=== PATIENT | female | born 1935 | race Caucasian/White ===

== ENCOUNTER 2018-06-09 12:46 | Inpatient (IN) ==
[2018-06-09] MEDS ORDERED: Morphine Inj 4 MG/ML Vial IV.PUSH ONE (13:20)
[2018-06-09 13:26] LABS: Bilirubin,Urine Negative (Negative); Clarity,Urine Clear (Clear); Color,Urine Yellow (Yellw/Straw); Glucose,Urine (UA) Negative (Negative); Leukocyte Esterase,Urine Small (Negative); Nitrite,Urine Negative (Negative); PH,Urine 6.5 (5.0-8.5); Specific Gravity,Urine Less/Equal 1.005 (1.002-1.035); Urobilinogen,Urine 0.2 mg/dL (Less than 2)
[2018-06-09 13:31] LABS: Squamous Epithelial Cell,Urine 0-5 /hpf (0-5)
--- NOTE | 2018-06-09 14:04 | ED ---
HPI General Chief Complaint: Abdominal Pain Stated Complaint: Abd pain x Friday Time Seen by Provider: 06/09/18 13:23 Source: patient Mode of arrival: ambulatory Limitations: no limitations History of Present Illness HPI narrative: 83-year-old female with history of AFIB, hyperlipidemia, GERD, anticoagulated on Xarelto here with diffuse abdominal pain times 3 days. Denies nausea, vomiting, constipation, diarrhea. She reports she had a small normal bowel movement yesterday. Denies urinary symptoms. Denies chest pain or shortness of breath. She reports the pain is diffuse, intermittent, sharp and spasming at times. No provoking factors. No alleviating factors. No fever or chills. No prior abdominal surgeries. PCP Dr. Grace Last PO intake 8 ounces of water at 9am Related Data Home Medications Medication Instructions Recorded Confirmed atorvastatin [Lipitor] 10 mg PO DAILY 06/09/18 06/09/18 calcium carbonate [Calcium 500] 750 mg PO DAILY 06/09/18 06/09/18 cyanocobalamin (vitamin B-12) 1,000 mcg PO DAILY 06/09/18 06/09/18 [Vitamin B-12] diltiazem HCl 300 mg PO DAILY 06/09/18 06/09/18 fluticasone-vilanterol [Breo 1 inh INHALATION DAILY 06/09/18 06/09/18 Ellipta] omeprazole 40 mg PO DAILY 06/09/18 06/09/18 rivaroxaban [Xarelto] 20 mg PO DAILY 06/09/18 06/09/18 Allergies Allergy/AdvReac Type Severity Reaction Status Date / Time No Known Allergies Allergy Verified 06/09/18 12:48 Review of Systems ROS: all other systems reviewed are negative PMFSH Medical History Medical History Atrial fibrillation (Acute) GERD (gastroesophageal reflux disease) (Acute) History of hysterectomy (Acute) Social History Social History Substance History: No History of Abuse Second Hand Smoke Exposure: No Smoking Status: Former smoker Tobacco Type: Cigarettes How Often Do You Have a Drink Containing Alcohol: 2 to 4 times a month Recent Travel in [facility] within the Last 8 Weeks: No Recent Out of Country Travel within the Last 8 Weeks: No Immunization History Tetanus Immunization: Unsure Exam Narrative Exam Narrative: GENERAL: Well-nourished, well-developed patient. Patient appears uncomfortable at times grimacing holding her abdomen SKIN: Focused skin assessment warm/dry. HEAD: Normocephalic. EYES: No scleral icterus. No injection or drainage. NECK: Supple, trachea midline. No JVD or lymphadenopathy. CARDIOVASCULAR: Regular rate and rhythm without murmurs, gallops, or rubs. RESPIRATORY: Breath sounds equal bilaterally. No accessory muscle use. GASTROINTESTINAL: Abdomen soft, nondistended. Diffusely tender in all quadrants with increased sensitivity in the left upper and right lower quadrant. Mild guarding. MUSCULOSKELETAL: No cyanosis, or edema. BACK: Nontender without obvious deformity. No CVA tenderness. Course Initial Documented Vital Signs Temperature 97.8 F 06/09/18 12:50 Pulse Rate 92 H 06/09/18 12:50 Respiratory Rate 18 06/09/18 12:50 Blood Pressure 155/64 H 06/09/18 12:50 Pulse Oximetry 97 06/09/18 12:50 Last Documented Vital Signs Temperature 99.5 F 06/09/18 15:36 Pulse Rate 110 H 06/09/18 15:36 Respiratory Rate 18 06/09/18 15:36 Blood Pressure 151/70 H 06/09/18 15:36 Pulse Oximetry 97 06/09/18 12:50 Medical Decision Making FRANKY Attestation FRANKY supervised visit: Yes Attestation: Patient presented with abdominal pain and has been found to have appendicitis. [facility] Narrative Medical decision making narrative: 83-year-old female with diffuse abdominal pain times 2 days. IV access established, patient placed on continuous cardiac and pulse oximetry monitoring. EKG obtained. CBC, CMP, coags, UA, CT abdomen pelvis ordered and pending. Patient was administered 4 mg IV morphine and [address] ABD/PELVIS: ACUTE APPENDICITIS with possible rupture Spoke with general surgeon Dr. Jackson who would like the patient kept NPO, admitted to medicine, transferred to the main hospital, plan to go to the OR this evening. He would like Zosyn IV spoke with Dr Robles ([facility]) who agrees to accept patient to their service Medical Screen Exam Complete: Yes Emergency Medical Condition: Yes Differential Diagnosis Differential Diagnosis: Appendicitis, diverticulitis, mesenteric ischemia Lab Data Result diagrams: 06/09/18 13:45 06/09/18 13:45 Lab Results 06/09/18 06/09/1818 Range/Units 13:15 13:45 13:45 WBC 9.0 (4.0-11.0) th/mm3 RBC 3.70 L (4.00-5.30) mil/mm3 Hgb 11.0 L (11.6-15.3) gm/dL Hct 34.0 L (35.0-46.0) % MCV 91.8 (80.0-100.0) fL MCH 29.7 (27.0-34.0) pg MCHC 32.3 (32.0-36.0) % RDW 12.6 (11.6-17.2) % Plt Count 213 (150-450) th/mm3 MPV 7.5 (7.0-11.0) fL Prelim Diff (Auto) Slide review pending WBC Differential Manual diff final Seg Neuts % (Manual) 53 (16-70) % Band Neuts % (Manual) 4 (0-6) % Lymphocytes % (Manual) 19 (9-44) % Monocytes % (Manual) 19 H (0-8) % Eosinophils % (Manual) 1 (0-4) % Metamyelocytes % (Man) 3 H (0-1) % Myelocytes % (Man) 1 H (0-0) % Abs Neuts (Manual) 5.5 (1.8-7.7) th/mm3 Nucleated RBCs/100 WBC 1 H (0-0) /100 WBC Differential Comment . Platelet Estimate Low L (Normal) Platelet Morphology Normal (Normal) Tear Drop Cells 1+ H (None) Ovalocytes 1+ H (None) PT 10.1 (9.8-11.6) sec INR 1.0 Ratio Sodium (136-145) meq/L Potassium (3.5-5.1) meq/L Chloride (98-107) meq/L Carbon Dioxide (21.0-32.0) meq/L Anion Gap (5-15) meq/L BUN (7-18) mg/dL Creatinine (0.50-1.00) mg/dL Estimated GFR (>89) mL/min Random Glucose (74-106) mg/dL Lactic Acid (0.4-2.0) mmol/L Calcium (8.5-10.1) mg/dL Magnesium (1.5-2.5) mg/dL Total Bilirubin (0.2-1.0) mg/dL AST (15-37) U/L ALT (10-53) U/L Alkaline Phosphatase (45-117) U/L Troponin I (0.02-0.05) ng/mL Total Protein (6.4-8.2) g/dL Albumin (3.4-5.0) g/dL Lipase (73-393) U/L Ur Collection Type Clean catch Urine Color Yellow (Yellw/Straw) Urine Clarity Clear (Clear) Urine pH 6.5 (5.0-8.5) Ur Specific [place] Less/equal 1.005 (1.002-1.035) Urine Protein Negative (Neg-Trace) mg/dL Urine Glucose (UA) Negative (Negative) mg/dL Urine Ketones Negative (Negative) mg/dL Urine Occult Blood Small H (Negative) Urine Nitrate Negative (Negative) Urine Bilirubin Negative (Negative) Urine Urobilinogen 0.2 (Less than 2) mg/dL Ur Leukocyte Esterase Small H (Negative) Urine RBC 15-50 H (0-3) /hpf Urine WBC 6-8 H (0-5) /hpf Urine WBC Clumps Occasional H (None) Ur Squamous Epith Cells 0-5 (0-5) /hpf Micro UA Comment Culture indicated Ur Microscopic Review Microscopic reviewed Urine Culture Comments Culture indicated 06/09/18 06/09/18 Range/Units 13:45 14:22 WBC (4.0-11.0) th/mm3 RBC (4.00-5.30) mil/mm3 Hgb (11.6-15.3) gm/dL Hct (35.0-46.0) % MCV (80.0-100.0) fL MCH (27.0-34.0) pg MCHC (32.0-36.0) % RDW (11.6-17.2) % Plt Count (150-450) th/mm3 MPV (7.0-11.0) fL Prelim Diff (Auto) WBC Differential Seg Neuts % (Manual) (16-70) % Band Neuts % (Manual) (0-6) % Lymphocytes % (Manual) (9-44) % Monocytes % (Manual) (0-8) % Eosinophils % (Manual) (0-4) % Metamyelocytes % (Man) (0-1) % Myelocytes % (Man) (0-0) % Abs Neuts (Manual) (1.8-7.7) th/mm3 Nucleated RBCs/100 WBC (0-0) /100 WBC Differential Comment Platelet Estimate (Normal) Platelet Morphology (Normal) Tear Drop Cells (None) Ovalocytes (None) PT (9.8-11.6) sec INR Ratio Sodium 134 L (136-145) meq/L Potassium 4.4 (3.5-5.1) meq/L Chloride 102 (98-107) meq/L Carbon Dioxide 23.3 (21.0-32.0) meq/L Anion Gap 9 (5-15) meq/L BUN 7 (7-18) mg/dL Creatinine 0.65 (0.50-1.00) mg/dL Estimated GFR 87 L (>89) mL/min Random Glucose 86 (74-106) mg/dL Lactic Acid 0.5 (0.4-2.0) mmol/L Calcium 8.5 (8.5-10.1) mg/dL Magnesium 2.2 (1.5-2.5) mg/dL Total Bilirubin 0.5 (0.2-1.0) mg/dL AST 19 (15-37) U/L ALT 16 (10-53) U/L Alkaline Phosphatase 66 (45-117) U/L Troponin I Less than 0.02 L (0.02-0.05) ng/mL Total Protein 6.9 (6.4-8.2) g/dL Albumin 3.3 L (3.4-5.0) g/dL Lipase 74 (73-393) U/L Ur Collection Type Urine Color (Yellw/Straw) Urine Clarity (Clear) Urine pH (5.0-8.5) Ur Specific [place] (1.002-1.035) Urine Protein (Neg-Trace) mg/dL Urine Glucose (UA) (Negative) mg/dL Urine Ketones (Negative) mg/dL Urine Occult Blood (Negative) Urine Nitrate (Negative) Urine Bilirubin (Negative) Urine Urobilinogen (Less than 2) mg/dL Ur Leukocyte Esterase (Negative) Urine RBC (0-3) /hpf Urine WBC (0-5) /hpf Urine WBC Clumps (None) Ur Squamous Epith Cells (0-5) /hpf Micro UA Comment Ur Microscopic Review Urine Culture Comments Imaging Data Radiologist's impression: Abdomen/Pelvis CT 06/09/18 13:20 CONCLUSION: 1. Abnormal tubular structure and small calcification in the right lower quadrant with surrounding inflammatory change. The findings are most characteristic of acute appendicitis with possible rupture. There is no free air. 2. Extensive diverticulosis. 3. Unremarkable gallbladder. Discharge Plan Discharge Disposition Patient Disposition: ED Admit(ED Internal Use Only) Discharge Order Discharge Orders: ED Use Only Admit Order (Routine); Ordered 06/09/18 Ordered By: Yesenia Hsieh Discharge Details Diagnosis: Acute appendicitis Physicians Team ED Provider: Donny Hall ED Midlevel Provider: Yesenia Hsieh Primary Care Provider: Negrito Grace Rxs /Orders / Referrals /Forms Prescriptions: No Action atorvastatin [Lipitor] 10 mg Tablet 10 mg PO DAILY RF: 0 omeprazole 40 mg Capsule,Delayed Release(Dr/Ec) 40 mg PO DAILY RF: 0 rivaroxaban [Xarelto] 20 mg Tablet 20 mg PO DAILY RF: 0 cyanocobalamin (vitamin B-12) [Vitamin B-12] 1,000 mcg Tablet 1,000 mcg PO DAILY RF: 0 calcium carbonate [Calcium 500] 500 mg calcium (1,250 mg) Tablet 750 mg PO DAILY RF: 0 diltiazem HCl 300 mg Tablet Extended Release 24 Hr 300 mg PO DAILY RF: 0 fluticasone-vilanterol [Breo Ellipta] 100-25 mcg/dose Blister With Device 1 inh INHALATION DAILY RF: 0 Status ED Status: Admitted Patient Addendum entered and electronically signed by RAFAEL Pineda 06/09/18 15:38 : Correction I spoke with general surgeon Dr. Ike Coulter
[2018-06-09 14:16] LABS: Chloride 102 meq/L (98-107); Potassium 4.4 meq/L (3.5-5.1); Sodium 134 meq/L (136-145)
[2018-06-09 14:19] LABS: Calcium 8.5 mg/dL (8.5-10.1)
[2018-06-09 14:20] LABS: Albumin 3.3 g/dL (3.4-5.0); Anion Gap 9 meq/L (5-15); Blood Urea Nitrogen 7 mg/dL (7-18); Carbon Dioxide 23.3 meq/L (21.0-32.0); Glucose,Random 86 mg/dL (74-106); Lipase 74 U/L (73-393); Magnesium 2.2 mg/dL (1.5-2.5)
[2018-06-09 14:23] LABS: Alanine Aminotransferase 16 U/L (10-53); Aspartate Aminotransferase 19 U/L (15-37); Glomerular Filtration Rate 87 mL/min (>89)
[2018-06-09 14:24] LABS: Prothrombin Time 10.1 sec (9.8-11.6); Total Protein 6.9 g/dL (6.4-8.2)
[2018-06-09 14:25] LABS: Alkaline Phosphatase 66 U/L (45-117)
[2018-06-09 14:32] LABS: Eosinophils 1 % (0-4); Lymphocytes 19 % (9-44); Metamyelocytes 3 % (0-1); Monocytes 19 % (0-8); Myelocytes 1 % (0-0); Tallied Nucleated RBC 1 (0-0)
[2018-06-09 14:33] LABS: Ovalocytes 1+; Platelet Morphology Normal (Normal); Tear Drop Cells 1+
[2018-06-09 14:42] LABS: Mean Corpuscular HGB Conc 32.3 % (32.0-36.0); Mean Corpuscular Hemoglobin 29.7 pg (27.0-34.0); Mean Corpuscular Volume 91.8 fL (80.0-100.0)
[2018-06-09 14:43] LABS: Mean Platelet Volume 7.5 fL (7.0-11.0); Platelet Count 213 th/mm3 (150-450); Red Cell Distribution Width 12.6 % (11.6-17.2)
--- NOTE | 2018-06-09 15:02 | CT ---
EXAM DATE: 06/09/2018 2:52 PM EST AGE/SEX: 83 years / Female INDICATIONS: Lower abdominal pain. CLINICAL DATA: This is the patient's initial encounter. Patient reports that signs and symptoms have been present for 3 days and indicates a pain score of 8/10. MEDICAL/SURGICAL HISTORY: Gastroesophageal reflux disease. Atrial fibrillation. Hysterectomy. ORAL CONTRAST: No oral contrast ingested. RADIATION DOSE: 9.91 CTDI (mGy) COMPARISON: No prior exams available for comparison. TECHNIQUE: Multiple contiguous axial images were obtained through the abdomen and pelvis following b olus infusion of 85 ml Omnipaque 350 (iohexol) nonionic water-soluble contrast as a single exam dos e. No oral contrast ingested. Using automated exposure control and adjustment of the mA and/or kV ac cording to patient size, radiation dose was kept as low as reasonably achievable to obtain optimal di agnostic quality images. DICOM format image data is available electronically for review and comparis on. FINDINGS: Lower Lungs: The visualized lower lungs are clear. Liver: The liver has a homogeneous density without space-occupying lesion. There is no dilation of th e biliary tree. The gallbladder is unremarkable in appearance. Spleen: Homogeneous density without enlargement. Pancreas: Unremarkable without mass or calcification. Kidneys: Normal in size and shape. No evidence of mass or hydronephrosis. Adrenal Glands: Unremarkable. Aorta: The aorta and proximal iliac vessels are grossly unremarkable without aneurysmal dilation. Bowel/Mesentery: A moderate to large size retrocardiac hiatal hernia is present. Stents of diverticu losis is noted throughout the colon with no focal wall thickening or inflammatory change. There is an abnormal tubular structure extending off the cecum measuring up to 1 cm with surrounding inflammator y change. There is an adjacent 5 mm calcification in the mesentery with surrounding inflammatory canales ge. There is no free air. Abdominal Wall: Intact. Retroperitoneum: No evidence of adenopathy in the retrocrural, para-aortic, or deep pelvic regions. Bladder: Contours are smooth. Reproductive Organs: No abnormal masses or calcifications seen. Inguinal: The inguinal region is unremarkable without evidence of adenopathy. Bony Structures: Osteopenia, degenerative change and scoliosis are present. CONCLUSION: 1. Abnormal tubular structure and small calcification in the right lower quadrant with surrounding i nflammatory change. The findings are most characteristic of acute appendicitis with possible rupture. There is no free air. 2. Extensive diverticulosis. 3. Unremarkable gallbladder. Electronically signed by: Lawrence Adams MD 06/09/2018 3:01 PM EST
[2018-06-09] MEDS ORDERED: Piperacil/Tazo 4.5 GM Premix 4.5 GM/100 ML BAG IV.SIG ONE (15:21)
[2018-06-09] MEDS ORDERED: Acetaminophen 325 MG Tablet PO PRN (16:00)
--- NOTE | 2018-06-09 16:01 | XR ---
EXAM DATE: 06/09/2018 3:55 PM EST AGE/SEX: 83 years / Female INDICATIONS: Abdominal pain. Evaluate for pneumonia, pneumothorax or other communicable diseases. Pr e-op surgery for appendectomy. CLINICAL DATA: This is the patient's initial encounter. Patient reports that signs and symptoms have been present for 2 days and indicates a pain score of 9/10. MEDICAL/SURGICAL HISTORY: Chronic obstructive pulmonary disease. AFIB. None. COMPARISON: [facility]PO, CHEST SINGLE AP, 11/27/2015. . FINDINGS: A single AP view of the chest demonstrates the lungs to be symmetrically aerated without evidence of mass, infiltrate or effusion. A retrocardiac hiatal hernia is again noted. There are tracheal calcifi cations and atherosclerotic calcifications in the aorta. The heart size appears mildly prominent.. O sseous structures are intact. CONCLUSION: 1. Mild cardiomegaly with no evidence of pulmonary edema. 2. Cardiac hiatal hernia. Electronically signed by: Lawrence Adams MD 06/09/2018 4:00 PM EST
[2018-06-09] MEDS: Morphine Inj 4 MG/ML Vial IV.PUSH PRN ×2 (16:41→21:38)
[2018-06-09] MEDS: Sod Chloride 0.9% Inj 1,000 ML IV.CONT SCH (16:42)
--- NOTE | 2018-06-09 18:33 | P.HPIM ---
History of Present Illness Primary Care Physician: Negrito Grace MD Chief Complaint: Abdominal pain History of Present Illness: This is a 83-year-old female with a history of A. fib on Xarelto, hyperlipidemia and GERD. She presents to the emergency department because of abdominal pain for 3 days. She describes an intermittent excruciating generalized pain worse on the right side associated with anorexia. Because she was not feeling well she stopped taking her Xarelto since Friday. Denies fever, chills, nausea, UTI symptoms, constipation and diarrhea. Abdominal CT shows changes suggestive of acute appendicitis with probably ruptured. General surgery has requested medical service to admit the patient and start IV Zosyn. All other systems reviewed negative. ITS Impressions Inpatient Certification Inpatient Certification: I certify that the inpatient services were ordered in accordance with Medicare regulations governing the order. This includes certification that hospital inpatient services are reasonable and necessary and in the case of services not specified as inpatient-only under 42 CFR 419.22(n), that they are appropriately provided as inpatient services in accordance to with the 2-midnight benchmark under 43 CFR 412.3(e) Estimated Total Length of Stay (Days): 2 Plans for Post Hospital Care: Home Review of Systems Review of Systems: all other systems reviewed are negative [facility] Medical History Medical History GERD (gastroesophageal reflux disease) (Acute) Atrial fibrillation (Acute) History of hysterectomy (Acute) Family History Family History Other No pertinent family history Social History Social History Substance History: No History of Abuse Second Hand Smoke Exposure: No Smoking Status: Former smoker Tobacco Type: Cigarettes How Often Do You Have a Drink Containing Alcohol: 2 to 4 times a month Recent Travel in [facility] within the Last 8 Weeks: No Recent Out of Country Travel within the Last 8 Weeks: No Immunization History Tetanus Immunization: Unsure Medications and Allergies Allergies Allergy/AdvReac Type Severity Reaction Status Date / Time No Known Allergies Allergy Verified 06/09/18 12:48 Home Medications Medication Instructions Recorded Confirmed Type atorvastatin [Lipitor] 10 mg PO DAILY 06/09/18 06/09/18 History calcium carbonate [Calcium 500] 750 mg PO DAILY 06/09/18 06/09/18 History cyanocobalamin (vitamin B-12) 1,000 mcg PO DAILY 06/09/18 06/09/18 History [Vitamin B-12] diltiazem HCl 300 mg PO DAILY 06/09/18 06/09/18 History fluticasone-vilanterol [Breo 1 inh INHALATION DAILY 06/09/18 06/09/18 History Ellipta] omeprazole 40 mg PO DAILY 06/09/18 06/09/18 History rivaroxaban [Xarelto] 20 mg PO DAILY 06/09/18 06/09/18 History Active Medications: Active Medications Acetaminophen (Tylenol) 650 mg PO Q4H PRN PRN Reason: Temp > 100.4, pain 1-2 Fluticasone/Vilanterol (Breo Ellipta 100/25 Mcg Inh) 1 puff INH DAILY NIEVES Piperacillin/Tazobactam/Dextrose (Zosyn 4.5 Gm Premix) 4.5 gm in 100 mls @ 200 mls/hr IV.SIG Q6H NIEVES Sodium Chloride (Ns Inj) 1,000 mls @ 100 mls/hr IV.CONT .Q10H NIEVES Last Infusion: 06/09/18 17:59 Dose: 100 mls/hr Morphine Sulfate (Morphine Inj) 4 mg IV.PUSH Q4H PRN PRN Reason: pain 6-10 Last Admin: 06/09/18 16:41 Dose: 4 mg Ondansetron HCl (Zofran Inj) 4 mg IV.PUSH Q6H PRN PRN Reason: NAUSEA OR VOMITING Sodium Chloride (Ns Flush) 2 ml IV.FLUSH PRN PRN PRN Reason: FLUSH AFTER USING IV ACCESS Sodium Chloride (Ns Flush) 2 ml IV.FLUSH BID NIEVES Sodium Chloride (Ns Flush) 2 ml IV.FLUSH PRN PRN PRN Reason: FLUSH AFTER USING IV ACCESS Physical Exam Vital signs: Last Vital Signs Temp 98.3 F 06/09/18 17:49 Pulse 115 H 06/09/18 17:49 Resp 24 06/09/18 17:49 BP 132/90 06/09/18 17:49 Pulse Ox 93 L 06/09/18 17:49 Intake & Output 06/07/18 06/08/18 06/09/18 06/10/18 06:59 06:59 06:59 06:59 Intake Total 100 / 100 Balance 100 / 100 Weight 60.8 kg Narrative: GENERAL: Well-developed, well-nourished in no distress SKIN: Warm and dry. HEAD: Atraumatic. Normocephalic. EYES: Pupils equal and round. No scleral icterus. No injection or drainage. ENT: No nasal bleeding or discharge. Mucous membranes pink and moist. NECK: Trachea midline. No JVD. CARDIOVASCULAR: Regular rate and rhythm. RESPIRATORY: No accessory muscle use. Clear to auscultation. Breath sounds equal bilaterally. GASTROINTESTINAL: Abdomen soft with generalized tenderness worse on the right lower quadrant MUSCULOSKELETAL: Extremities without clubbing, cyanosis, or edema. No obvious deformities. NEUROLOGICAL: Awake and alert. No obvious cranial nerve deficits. Motor grossly within normal limits. Five out of 5 muscle strength in the arms and legs. Normal speech. PSYCHIATRIC: Appropriate mood and affect; insight and judgment normal. Results Labs CBC & Chem 7: 06/09/18 13:45 06/09/18 13:45 Imaging Impressions Abdomen/Pelvis CT 06/09/18 13:20 CONCLUSION: 1. Abnormal tubular structure and small calcification in the right lower quadrant with surrounding inflammatory change. The findings are most characteristic of acute appendicitis with possible rupture. There is no free air. 2. Extensive diverticulosis. 3. Unremarkable gallbladder. Chest X-Ray 06/09/18 15:25 CONCLUSION: 1. Mild cardiomegaly with no evidence of pulmonary edema. 2. Cardiac hiatal hernia. Caprini VTE Risk Assessment Caprini VTE Risk Assessment: Moderate/High Risk (score >= 2) Caprini Risk Assessment Model: Point Value = 1 Point Value = 2 Point Value = 3 Point Value = 5 Age 41-60 Minor surgery BMI > 25 kg/m2 Swollen legs Varicose veins or History of unexplained or recurrent spontaneous Oral contraceptives or hormone replacement Sepsis (< 1 month) Serious lung disease, including pneumonia (< 1 month) Abnormal pulmonary function Acute myocardial infarction Congestive heart failure (< 1 month) History of inflammatory bowel disease Medical patient at bed rest Age 61-74 Arthroscopic surgery Major open surgery (> 45 min) Laparoscopic surgery (> 45 min) Malignancy Confined to bed (> 72 hours) Immobilizing plaster cast Central venous access Age >= 75 History of VTE Family history of VTE Factor V Leiden Prothrombin [id number] Lupus anticoagulant Anticardiolipin antibodies Elevated serum homocysteine Heparin-induced thrombocytopenia Other congenital or acquired thrombophilia Stroke (< 1 month) Elective arthroplasty Hip, pelvis, or leg fracture Acute spinal cord injury (< 1 month) Prophylaxis Regimen: Total Risk Factor Score Risk Level Prophylaxis Regimen 0-1 Low Early ambulation 2 Moderate Order ONE of the following: *Sequential Compression Device (SCD) *Heparin 5000 units SQ BID 3-4 Higher Order ONE of the following medications: *Heparin 5000 units SQ TID *Enoxaparin/Lovenox 40 mg SQ daily (WT < 150 kg, CrCl > 30 mL/min) *Enoxaparin/Lovenox 30 mg SQ daily (WT < 150 kg, CrCl > 10-29 mL/min) *Enoxaparin/Lovenox 30 mg SQ BID (WT < 150 kg, CrCl > 30 mL/min) AND/OR *Sequential Compression Device (SCD) 5 or more Highest Order ONE of the following medications: *Heparin 5000 units SQ TID (Preferred with Epidurals) *Enoxaparin/Lovenox 40 mg SQ daily (WT < 150 kg, CrCl > 30 mL/min) *Enoxaparin/Lovenox 30 mg SQ daily (WT < 150 kg, CrCl > 10-29 mL/min) *Enoxaparin/Lovenox 30 mg SQ BID (WT < 150 kg, CrCl > 30 mL/min) AND *Sequential Compression Device (SCD) Assessment and Plan Plan 83-year-old female presenting with abdominal pain anorexia. Abdominal CT shows changes suggestive of acute appendicitis probably ruptured. Acute appendicitis. Keep patient n.p.o., start IV fluids and pain management with IV morphine. Counseled regarding narcotics. Continue IV Zosyn. Consult general surgery. Off Xarelto for at least 2 days DVT prophylaxis with SCD and early ambulation.
[2018-06-09] MEDS ORDERED: fentaNYL Citrate Inj 250 MCG/5 ML Ampul ONE (19:55)
[2018-06-09] MEDS ORDERED: Bupivacaine/Epinephrine PF Inj 0.5% 30 ML Vial ONE (20:57)
[2018-06-09] MEDS: Piperacil/Tazo 4.5 GM Premix 4.5 GM/100 ML BAG IV.SIG SCH (21:40)
[2018-06-10] MEDS: Morphine Inj 4 MG/ML Vial IV.PUSH PRN ×5 (02:18→21:35)
[2018-06-10] MEDS: Sod Chloride 0.9% Inj 1,000 ML IV.CONT SCH ×4 (02:23→21:39)
[2018-06-10] MEDS ORDERED: Morphine Sulfate Inj 2 MG/ML Vial IV.PUSH ONE (04:15)
[2018-06-10] MEDS: Piperacil/Tazo 4.5 GM Premix 4.5 GM/100 ML BAG IV.SIG SCH ×4 (04:34→21:34)
[2018-06-10] MEDS ORDERED: Bupivacaine/Epinephrine PF Inj 0.5% 30 ML Vial ONE (05:08)
[2018-06-10 05:14] LABS: Baso % (Auto) 0.3 % (0.0-2.0); Eos % (Auto) 0.1 % (0.0-4.0); Hematocrit 35.5 % (35.0-46.0); Hemoglobin 11.7 gm/dL (11.6-15.3); Lymph # (Auto) 0.8 th/mm3 (1.0-4.8); Lymph % (Auto) 7.4 % (9.0-44.0); Mean Corpuscular HGB Conc 33.1 % (32.0-36.0); Mean Corpuscular Hemoglobin 31.3 pg (27.0-34.0); Mean Corpuscular Volume 94.7 fL (80.0-100.0); Mean Platelet Volume 7.4 fL (7.0-11.0); Mono # (Auto) 0.7 th/mm3 (0.0-0.9); Mono % (Auto) 6.4 % (0.0-8.0); Neut # (Auto) 9.1 th/mm3 (1.8-7.7); Neut % (Auto) 85.8 % (16.0-70.0); Platelet Count 190 th/mm3 (150-450); Red Blood Count 3.75 mil/mm3 (4.00-5.30); Red Cell Distribution Width 13.6 % (11.6-17.2); White Blood Count 10.6 th/mm3 (4.0-11.0)
[2018-06-10 05:35] LABS: Alanine Aminotransferase 13 U/L (10-53); Albumin 3.2 g/dL (3.4-5.0); Anion Gap 8 meq/L (5-15); Aspartate Aminotransferase 13 U/L (15-37); Blood Urea Nitrogen 7 mg/dL (7-18); Calcium 8.3 mg/dL (8.5-10.1); Carbon Dioxide 25.2 meq/L (21.0-32.0); Chloride 105 meq/L (98-107); Glomerular Filtration Rate Greater Than 89 mL/min (>89); Glucose,Random 84 mg/dL (74-106); Potassium 3.8 meq/L (3.5-5.1); Sodium 138 meq/L (136-145)
[2018-06-10 05:38] LABS: Alkaline Phosphatase 68 U/L (45-117); Total Protein 6.8 g/dL (6.4-8.2)
--- NOTE | 2018-06-10 06:33 | P.OP ---
- Preoperative Diagnosis (1) Acute appendicitis - Postoperative Diagnosis (1) Acute appendicitis Procedure: lap appy Anesthesia: GETA Surgeon: Abdi Coulter MD Estimated blood loss (mL): 5 Pathology: other (cutlure of abdominal abscess, appendix) Operation and Findings: localized perforation
[2018-06-10] MEDS ORDERED: fentaNYL Citrate Inj 100 MCG/2 ML Ampul ONE (06:57)
--- NOTE | 2018-06-10 07:09 | MB ---
cc: Abdi Coulter MD DATE: 06/09/2018 REASON FOR CONSULTATION: Abdominal pain, acute appendicitis. 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 HISTORY OF PRESENT ILLNESS: The patient is an 83-year-old female who presents with acute onset of abdominal pain. The patient noted medical issues including atrial fibrillation on Xarelto, presented with a 3-day history of pain starting Friday. She states the pain started on the right side, continued to get worse. She has had some radiation to bilateral lower quadrants and no improvement. Pain was worse with movement, better with lying still. She had associated anorexia, but denied any vomiting, fevers or chills. She came to the emergency department for further evaluation including CT scan showing acute appendicitis with a white count of 9. Therefore, decision was made for transfer from [place] to [facility], given the patient's advanced age, medical comorbidities, and acute problem. Surgery was consulted for operative intervention. PAST MEDICAL HISTORY: Reflux, atrial fibrillation. PAST SURGICAL HISTORY: Hysterectomy. FAMILY HISTORY: Denies diabetes or hypertension. SOCIAL HISTORY: Denies current smoking or history of smoking. Denies ETOH or IVDA. ALLERGIES: NO KNOWN DRUG ALLERGIES. MEDICATIONS: See EMR, [facility]. REVIEW OF SYSTEMS: GENERAL: Denies fevers, chills. HEENT: Denies eye pain, ear pain. NECK: Denies swelling or pain. LUNGS: Denies cough or wheeze. HEART: Denies palpitations or chest pain. ABDOMEN: Complains of abdominal pain. Denies nausea or vomiting. GENITOURINARY: Denies dysuria or hematuria, urinary incontinence, polyuria or polydipsia. INTEGUMENT: Denies any mass or lesions. PHYSICAL EXAMINATION: GENERAL: The patient in no acute distress. VITAL SIGNS: Temperature 98.3, pulse 115, respirations 24, blood pressure 132/90, saturation 98%. HEENT: Pupils equal, round, reactive. NECK: Supple. Trachea midline. LUNGS: Clear to auscultation, bilateral expansion. HEART: S1, S2. ABDOMEN: Soft. Positive tenderness to palpation in bilateral lower quadrants, worse on the right and left. No rebound or guarding. EXTREMITIES: Warm and well perfused. NEUROLOGIC: GCS of 15. 5/5 motor in all extremities. LABORATORY AND DIAGNOSTIC DATA: WBC 9, hemoglobin 11, hematocrit 34, platelets 213. Sodium 134, potassium 4.4, chloride 102, BUN 7, creatinine 0.6, AST 19, ALT 16, lipase 74. CT reviewed by myself showing an inflamed appendix with acute appendicitis and diverticulosis. ASSESSMENT: The patient is an 83-year-old female who presents with acute appendicitis. PLAN: After a full workup of the patient as above. Main issue at this point, the patient appears to have acute appendicitis. We will plan for operative intervention including laparoscopic appendectomy. Discussed with the patient in detail, states understanding and agrees. We will give IV antibiotics, pain control, IV fluids. Again, the patient needs to go to the operating room. The patient is aware and agrees. I did discuss further with the patient regarding Xarelto and advanced age and discussed elevated risk as a result of this. Again, she is aware and would like to proceed with surgery. Daughter at bedside. MD LISA Burton/roman/pipe , 06:39 AM , 06:46 AM
--- NOTE | 2018-06-10 07:17 | MP ---
cc: Abdi Coulter MD DATE OF OPERATION: 06/10/2018 PREOPERATIVE DIAGNOSIS: Acute appendicitis. POSTOPERATIVE DIAGNOSIS: Acute appendicitis, localized perforation. PROCEDURE PERFORMED: Laparoscopic appendectomy. SURGEON: Abdi Coulter MD WHARF LABORER: None. ANESTHESIA: GETA. INTRAVENOUS FLUIDS: See anesthesia sheet. ESTIMATED BLOOD LOSS: 5 mL. DRAINS: A 10-[place] flat KRISHNA drain, right lower quadrant. FINDINGS: Localized perforation, acute appendicitis. SPECIMENS: Appendix, purulent material sent for culture. WOUND CLASSIFICATION: Contaminated. INDICATIONS: An 83-year-old female with acute onset of abdominal pain. Pain started 3 days ago, got worse. CT scan findings consistent with appendicitis. Therefore, decision was made for operative intervention. DETAILS OF PROCEDURE: The patient was taken to the operating suite, placed in supine position. She was prepped and draped in the usual sterile fashion after induction of general endotracheal anesthesia. Brief timeout done stating correct patient, procedure and surgical site. We were all in agreement with this. Attention was first directed to the umbilicus where local anesthetic was injected. Stab abigail incision was made. The 5 mm Optiview port was placed with 0-degree lens, entered the abdomen safely. Abdomen insufflated to 15 mm pneumoperitoneum. On gross inspection, no evidence of injury. Two other ports were placed including left lower quadrant 12 mm and a 5 mm suprapubic port. The patient was placed in Trendelenburg and airplaned on the left. The right lower quadrant was examined. The small bowel ileum was noted to be draped over the appendix and somewhat adhered to the inflammatory reaction of the appendix. This was dissected away from the appendix. The appendix was identified and noted to be again localized with contained abscess perforation. Suction and irrigation done to clean out perforation. The appendix was mobilized. The base of the mesoappendix, small window made with [place]. The Endo-RADHA stapler 35 was used to transect the base of the appendix. The mesoappendix was again thickened and indurated. A 35 RADHA stapler was used to transect this as well. Appendix was placed in the EndoCatch bag and removed from the abdomen. Hemostasis was obtained. A small amount of Surgicel powder was placed in the right lower quadrant. Everything noted to be hemostatic. The 10-[place] flat Koby drain was placed in the right lower quadrant through the suprapubic incision. A 3-0 nylon used to secure this in place. Pneumoperitoneum were removed. Ports were removed. The left lower quadrant port was closed to the fascia with 0 Vicryl and 4-0 Monocryl incisional port sites. Sterile dressings including Mastisol and Steri-Strips placed. The patient tolerated the procedure well. All lap and instrument counts were correct at the end of the procedure. The patient was extubated and taken stable to PACU. MD LISA Burton/roman/kd , 06:43 AM , 06:49 AM
[2018-06-10] MEDS ORDERED: *morphine SULFATE 4 MG/ML PERIprocedure ONLY ONE (09:21)
--- NOTE | 2018-06-10 16:53 | P.PN ---
Subjective Interval history: Follow-up for acute appendicitis. The patient is seen status post laparoscopic appendectomy earlier today. She reports continued intractable diffuse abdominal pain s/p surgery. She states the IV morphine does work but it does not last long , requesting more frequent dosing. She reports intermittent nausea but no vomiting since surgery. Last BM was on Friday 06/08. Denies any current fevers/ chills. Denies any other medical complaints at this time. Physical Exam Vital signs: Vital Signs 06/09/18 16:46 06/09/18 17:49 06/09/18 20:00 Temperature 99 F 98.3 F 99.5 F Pulse Rate 110 H 115 H 112 H Respiratory Rate 18 24 20 Blood Pressure 120/60 132/90 142/67 H Pulse Oximetry 93 L 92 L 06/10/18 00:10 06/10/18 04:20 06/10/18 05:01 Temperature 99.6 F 99.1 F Pulse Rate 118 H 112 H 104 H Respiratory Rate 16 22 18 Blood Pressure 104/57 L 155/74 H 142/61 H Pulse Oximetry 92 L 94 L 93 L 06/10/18 06:43 06/10/18 06:45 06/10/18 07:00 Temperature 98.8 F Pulse Rate 108 H 117 H 112 H Respiratory Rate 16 17 21 Blood Pressure 128/58 L 109/57 L 138/65 Pulse Oximetry 93 L 91 L 98 06/10/18 07:15 06/10/18 07:30 06/10/18 07:45 Temperature 98.5 F Pulse Rate 105 H 96 H 104 H Respiratory Rate 24 16 15 Blood Pressure 113/51 L 117/69 126/59 L Pulse Oximetry 98 96 94 L 06/10/18 08:00 06/10/18 08:15 06/10/18 08:30 Temperature 97.6 F Pulse Rate 98 H 73 81 Respiratory Rate 15 14 14 Blood Pressure 115/55 L 115/53 L 121/58 L Pulse Oximetry 95 95 96 06/10/18 09:00 06/10/18 09:28 06/10/18 09:30 Temperature Pulse Rate 79 80 Respiratory Rate 16 14 14 Blood Pressure 124/55 L 142/64 H Pulse Oximetry 97 96 06/10/18 10:00 06/10/18 10:30 06/10/18 11:02 Temperature Pulse Rate 83 87 87 Respiratory Rate 13 14 14 Blood Pressure 126/58 L 126/58 L 111/57 L Pulse Oximetry 96 98 96 06/10/18 12:00 Temperature 98.1 F Pulse Rate 101 H Respiratory Rate 16 Blood Pressure 117/55 L Pulse Oximetry 97 Intake & Output 06/09/18 06/10/18 06/10/18 18:59 06:59 18:59 Intake Total 100 / 100 2100 / 2100 1100 / 1100 Output Total Balance 100 / 100 2090 / 2090 1090 / 1090 Weight 60.8 kg 59.421 kg Intake: IV 100 / 100 1200 / 1200 1100 / 1100 NS Inj 1,000 ML @ 100 mls/hr IV 0 / 0 1000 / 1000 1000 / 1000 .CONT .Q10H NIEVES Rx#:[id number] Zosyn 4.5 GM Premix 4.5 gm In 100 / 100 200 / 200 100 / 100 100 ml @ 200 mls/hr IV.SIG Q6H NIEVES Rx#:[id number] Oral 0 / 0 Anesthesia Amount 900 / 900 Output: Estimated Blood Loss Wound Drainage # 1 Abdomen Other: # Voids 1 3 Weight On Admission 59.421 kg Narrative: GENERAL: Well-nourished, well-developed pleasant elderly female patient in [facility]. SKIN: Warm and dry. No rash. HEENT: Normocephalic. Atraumatic. Pupils equal and round. Mucous membranes pink and moist. CARDIOVASCULAR: Irregular rate and rhythm. 2/6 systolic murmur noted. RESPIRATORY: No accessory muscle use. Clear to auscultation. Breath sounds equal bilaterally. GASTROINTESTINAL: Abdomen soft, nondistended, mild diffuse TTP. Normoactive bowel sounds x4. MUSCULOSKELETAL: No obvious deformities. Extremities without clubbing, cyanosis , or edema. NEUROLOGICAL: Awake and alert. No obvious cranial nerve deficits. Moving all extremities spontaneously. Normal speech. PSYCHIATRIC: Appropriate mood and affect; insight and judgment normal. Results - Labs CBC & Chem 7: 06/10/18 04:37 06/10/18 04:37 Laboratory Results - last 24 hr 06/09/18 06/10/18 06/10/18 19:18 04:37 04:37 WBC 10.6 RBC 3.75 L Hgb 11.7 Hct 35.5 MCV 94.7 MCH 31.3 MCHC 33.1 RDW 13.6 Plt Count 190 MPV 7.4 Neut % (Auto) 85.8 H Lymph % (Auto) 7.4 L Flagler % (Auto) 6.4 Eos % (Auto) 0.1 Baso % (Auto) 0.3 Neut # (Auto) 9.1 H Lymph # (Auto) 0.8 L Flag[place] # (Auto) 0.7 Eos # (Auto) 0.0 Baso # (Auto) 0.0 WBC Differential . Differential Comment Auto diff final Sodium 138 Potassium 3.8 Chloride 105 Carbon Dioxide 25.2 Anion Gap 8 BUN 7 Creatinine 0.62 Estimated GFR Greater than 89 POC Glucose 91 Random Glucose 84 Calcium 8.3 L Total Bilirubin 0.9 AST 13 L ALT 13 Alkaline Phosphatase 68 Total Protein 6.8 Albumin 3.2 L 06/10/18 04:51 WBC RBC Hgb Hct MCV MCH MCHC RDW Plt Count MPV Neut % (Auto) Lymph % (Auto) Flag[place] % (Auto) Eos % (Auto) Baso % (Auto) Neut # (Auto) Lymph # (Auto) [place] # (Auto) Eos # (Auto) Baso # (Auto) WBC Differential Differential Comment Sodium Potassium Chloride Carbon Dioxide Anion Gap BUN Creatinine Estimated GFR POC Glucose 83 Random Glucose Calcium Total Bilirubin AST ALT Alkaline Phosphatase Total Protein Albumin Microbiology 06/09/18 13:15 Clean Catch Urine Urine Culture - Preliminary Immature growth - reincubate - Imaging Abdomen/Pelvis CT 06/09/18 13:20 CONCLUSION: 1. Abnormal tubular structure and small calcification in the right lower quadrant with surrounding inflammatory change. The findings are most characteristic of acute appendicitis with possible rupture. There is no free air. 2. Extensive diverticulosis. 3. Unremarkable gallbladder. Chest X-Ray 06/09/18 15:25 CONCLUSION: 1. Mild cardiomegaly with no evidence of pulmonary edema. 2. Cardiac hiatal hernia. - Procedures 06/10/18laparoscopic appendectomy with Dr. Coulter Assessment and Plan - Plan 83-year-old female with history of A. fib on Xarelto, HLD, GERD, presents with abdominal pain and anorexia times 3 days. Acute appendicitis: -CT abdomen/pelvis reviewed, shows acute appendicitis with possible rupture; no free air -Kept n.p.o. -Supportive treatment with IVF, antiemetics, pain control with IV morphine - increased to q2h prn -Continue on antibiotics with IV Zosyn -Consulted general surgery -S/p laparoscopic appendectomy 06/10 -Diet advanced to clear liquids per surgical team -Monitor for improvement Atrial fibrillation: Chronic -Patient has been off Xarelto for at least 2 days due to feeling ill -Continue to hold Xarelto until cleared by surgery to restart -Continue patient's Cardizem CD 300 mg daily -Monitor on telemetry GERD: Chronic -Continue PPI Hyperlipidemia: Chronic -Continue statin DVT prophylaxis: with SCD and early ambulation. Discharge Planning: The patient is status post laparoscopic appendectomy today. Plan to discharge home when tolerating oral intake and cleared by general surgery.
[2018-06-10] MEDS ORDERED: dilTIAZem 60 MG Tablet PO PRN (17:20)
--- NOTE | 2018-06-10 23:07 | ECG ---
Date Performed: 06/09/2018 Time Performed: 13:36:15 PTAGE: 83 years EKG: ATRIAL FIBRILLATION SEPTAL MYOCARDIAL INFARCTION ABNORMAL ECG NO PREVIOUS TRACING DOCTOR: Kenneth Guzmán Interpretating Date/Time 06/10/2018 23:04:46
[2018-06-11] MEDS: Morphine Inj 4 MG/ML Vial IV.PUSH PRN ×9 (03:51→21:34)
[2018-06-11] MEDS: Piperacil/Tazo 4.5 GM Premix 4.5 GM/100 ML BAG IV.SIG SCH ×4 (05:32→21:34)
[2018-06-11] MEDS: dilTIAZem CD 300 MG Capsule PO SCH (08:50)
--- NOTE | 2018-06-11 08:56 | P.PN ---
Subjective Interval history: Follow-up acute appendicitis June 11, 2018-patient seen and examined, complains of radiating abdominal pain to the right upper quadrant. Afebrile Physical Exam Vital signs: Vital Signs 06/10/18 09:00 06/10/18 09:28 06/10/18 09:30 Temperature Pulse Rate 79 80 Respiratory Rate 16 14 14 Blood Pressure 124/55 L 142/64 H Pulse Oximetry 97 96 06/10/18 10:00 06/10/18 10:30 06/10/18 11:02 Temperature Pulse Rate 83 87 87 Respiratory Rate 13 14 14 Blood Pressure 126/58 L 126/58 L 111/57 L Pulse Oximetry 96 98 96 06/10/18 12:00 06/10/18 16:00 06/10/18 20:00 Temperature 98.1 F 97.8 F 98.1 F Pulse Rate 101 H 110 H 124 H Respiratory Rate 16 16 18 Blood Pressure 117/55 L 142/73 H 165/79 H Pulse Oximetry 97 97 93 L 06/10/18 21:39 06/10/18 23:55 06/11/18 00:00 Temperature 98.2 F Pulse Rate 142 H 101 H Respiratory Rate 20 20 Blood Pressure 135/62 Pulse Oximetry 06/11/18 04:00 06/11/18 04:29 06/11/18 06:34 Temperature 97.9 F Pulse Rate 93 H Respiratory Rate 18 20 20 Blood Pressure 139/63 Pulse Oximetry 96 Intake & Output 06/10/18 06/11/18 06/11/18 18:59 06:59 18:59 Intake Total 2700 / 2700 320 / 320 Output Total 10 / 10 0 / 0 Balance 2690 / 2690 320 / 320 Weight 66.5 kg Intake: IV 2200 / 2200 200 / 200 NS Inj 1,000 ML @ 100 mls/hr IV 1999 / 1999 .CONT .Q10H NIEVES Rx#:[id number] Zosyn 4.5 GM Premix 4.5 gm In 200 / 200 200 / 200 100 ml @ 200 mls/hr IV.SIG Q6H NIEVES Rx#:[id number] Oral 500 / 500 120 / 120 Output: Wound Drainage 10 / 10 0 / 0 # 1 Abdomen 10 / 10 0 / 0 Other: # Voids 1 3 Narrative: GENERAL: NAD SKIN: Warm and dry. HEAD: Atraumatic. Normocephalic. EYES: Pupils equal and round. No scleral icterus. No injection or drainage. ENT: No nasal bleeding or discharge. Mucous membranes pink and moist. NECK: Trachea midline. No JVD. CARDIOVASCULAR: Irregular regular rate and rhythm. RESPIRATORY: No accessory muscle use. Clear to auscultation. Breath sounds equal bilaterally. GASTROINTESTINAL: Abdomen soft, non-tender, nondistended. Hepatic and splenic margins not palpable. inc c/d/i MUSCULOSKELETAL: Extremities without clubbing, cyanosis, or edema. No obvious deformities. NEUROLOGICAL: Awake and alert. No obvious cranial nerve deficits. Motor grossly within normal limits. Five out of 5 muscle strength in the arms and legs. Normal speech. PSYCHIATRIC: Appropriate mood and affect; insight and judgment normal. Results - Labs CBC & Chem 7: 06/10/18 04:37 06/10/18 04:37 Laboratory Results - last 24 hr 06/11/18 00:08 POC Glucose 152 H Microbiology 06/10/18 06:06 Wound - Abdominal Gram Stain - Final 06/09/18 13:15 Clean Catch Urine Urine Culture - Preliminary Immature growth - reincubate - Procedures 06/10/18laparoscopic appendectomy with Dr. Coulter Assessment and Plan - Plan 83-year-old female with Acute appendicitis: -Status post appendectomy Management per general surgery Pain management accordingly Currently on clear diet, advance diet as tolerated per surgery Continue on antibiotics with IV Zosyn Atrial fibrillation: Chronic -Continue to hold Xarelto until cleared by surgery to restart -Continue patient's Cardizem CD 300 mg daily -Monitor on telemetry GERD: Chronic -Continue PPI Hyperlipidemia: Chronic -Continue statin DVT prophylaxis: with SCD and early ambulation.
--- NOTE | 2018-06-11 09:32 | P.PNGS ---
Subjective Interval history: Resting in bed Reports HR was high yesterday but better today after Cardizem restarted Physical Exam Vital signs: Vital Signs 06/10/18 09:30 06/10/18 10:00 06/10/18 10:30 Temperature Pulse Rate 80 83 87 Respiratory Rate 14 13 14 Blood Pressure 142/64 H 126/58 L 126/58 L Pulse Oximetry 96 96 98 06/10/18 11:02 06/10/18 12:00 06/10/18 16:00 Temperature 98.1 F 97.8 F Pulse Rate 87 101 H 110 H Respiratory Rate 14 16 16 Blood Pressure 111/57 L 117/55 L 142/73 H Pulse Oximetry 96 97 97 06/10/18 20:00 06/10/18 21:39 06/10/18 23:55 Temperature 98.1 F Pulse Rate 124 H 142 H Respiratory Rate 18 20 Blood Pressure 165/79 H Pulse Oximetry 93 L 06/11/18 00:00 06/11/18 04:00 06/11/18 04:29 Temperature 98.2 F 97.9 F Pulse Rate 101 H 93 H Respiratory Rate 20 18 20 Blood Pressure 135/62 139/63 Pulse Oximetry 96 06/11/18 06:34 Temperature Pulse Rate Respiratory Rate 20 Blood Pressure Pulse Oximetry Intake & Output 06/10/18 06/11/18 06/11/18 18:59 06:59 18:59 Intake Total 2700 / 2700 320 / 320 Output Total 10 / 10 0 / 0 Balance 2690 / 2690 320 / 320 Weight 66.5 kg Intake: IV 2200 / 2200 200 / 200 NS Inj 1,000 ML @ 100 mls/hr IV 1999 / 1999 .CONT .Q10H NIEVES Rx#:[id number] Zosyn 4.5 GM Premix 4.5 gm In 200 / 200 200 / 200 100 ml @ 200 mls/hr IV.SIG Q6H NIEVES Rx#:[id number] Oral 500 / 500 120 / 120 Output: Wound Drainage 10 / 10 0 / 0 # 1 Abdomen 10 / 10 0 / 0 Other: # Voids 1 3 Narrative: Alert and awake Abd: mildly distended; post op pain at umbilicus and RLQ; EMELYN with thin purulent drainage Results - Labs 06/10/18 04:37 06/10/18 04:37 Laboratory Results - last 24 hr 06/11/18 00:08 POC Glucose 152 H - Imaging Imaging: ITS Impressions Abdomen/Pelvis CT 06/09/18 13:20 CONCLUSION: 1. Abnormal tubular structure and small calcification in the right lower quadrant with surrounding inflammatory change. The findings are most characteristic of acute appendicitis with possible rupture. There is no free air. 2. Extensive diverticulosis. 3. Unremarkable gallbladder. Chest X-Ray 06/09/18 15:25 CONCLUSION: 1. Mild cardiomegaly with no evidence of pulmonary edema. 2. Cardiac hiatal hernia. Assessment and Plan - Assessment (1) Acute appendicitis Code(s): K35.80 - Unspecified acute appendicitis Status: Acute Plan: 83 year old female POD1 lap appy; localized perforation -Continue clear liquids until bowel function returns -IVF -Continue Cardizem -OOB as long as HR stable -Pain control -High risk for ileus ---go slow with diet---will likely remain in the hospital for 48-72 hours - Attending Attestation patient seen at bedside keep clears today emelyn sxn ambulate abx The exam, history, and the medical decision-making described in the above note were completed with the assistance of the mid-level provider. I reviewed and agree with the findings presented. I attest that I had a [id number] encounter with the patient on the same day, and personally performed and documented my assessment and findings in the medical record. (1) Acute appendicitis Qualifiers: Acute appendicitis type: other Qualified Code(s): K35.890 - Other acute appendicitis without perforation or gangrene; K35.89 - Other acute appendicitis
[2018-06-11] MEDS: Sod Chloride 0.9% Inj 1,000 ML IV.CONT SCH (11:25)
--- NOTE | 2018-06-11 22:54 | XR ---
EXAM DATE: 06/11/2018 10:51 PM EST AGE/SEX: 83 years / Female INDICATIONS: Shortness of breath. CLINICAL DATA: This is the patient's subsequent encounter. Patient reports that signs and symptoms h ave been present for 1 day and indicates a pain score of 0/10. MEDICAL/SURGICAL HISTORY: Chronic obstructive pulmonary disease. Congestive heart failure. Non e. COMPARISON: HPO, CHEST 1V SINGLE AP, 06/09/2018. . FINDINGS: The heart is enlarged. There is moderate interstitial edema present. There are bibasilar parenchymal changes evident with probably small pleural effusion. There is no pne umothorax. CONCLUSION: Moderate congestive failure with significant progression from 06/09/2018 Electronically signed by: Caleb Ignacio MD Board Certified Radiologist 06/11/2018 10:52 PM EST
[2018-06-12] MEDS: Morphine Inj 4 MG/ML Vial IV.PUSH PRN ×4 (02:21→16:50)
[2018-06-12] MEDS: Piperacil/Tazo 4.5 GM Premix 4.5 GM/100 ML BAG IV.SIG SCH ×4 (04:52→22:18)
[2018-06-12] MEDS: dilTIAZem CD 300 MG Capsule PO SCH (08:46)
--- NOTE | 2018-06-12 10:04 | P.PN ---
Subjective Interval history: Follow-up acute appendicitis June 11, 2018-patient seen and examined, complains of radiating abdominal pain to the right upper quadrant. Afebrile June 12, 2018-patient seen and examined, states she went into severe symptoms of shortness of breath overnight secondary to IV fluid likely acute pulmonary edema. However stable this morning Physical Exam Vital signs: Vital Signs 06/11/18 11:28 06/11/18 12:00 06/11/18 16:00 Temperature 97.6 F 97.6 F Pulse Rate 84 89 Respiratory Rate 18 16 17 Blood Pressure 115/57 L 144/65 H Pulse Oximetry 94 L 93 L 06/11/18 16:12 06/11/18 17:31 06/11/18 20:00 Temperature 98.4 F Pulse Rate 72 88 Respiratory Rate 20 18 Blood Pressure 157/72 H Pulse Oximetry 97 06/11/18 22:20 06/11/18 23:39 06/11/18 23:42 Temperature 98.1 F Pulse Rate 122 H 106 H Respiratory Rate 18 20 Blood Pressure 179/77 H Pulse Oximetry 96 96 06/12/18 00:00 06/12/18 04:00 06/12/18 08:00 Temperature 98.1 F 97.9 F 98.7 F Pulse Rate 88 86 92 H Respiratory Rate 18 18 17 Blood Pressure 154/65 H 116/55 L 121/63 Pulse Oximetry 98 94 L 91 L Intake & Output 06/11/18 06/12/18 06/12/18 18:59 06:59 18:59 Intake Total 1949 320 / 320 Balance 1949 320 / 320 Weight 66.2 kg Intake: IV 1200 / 1200 200 / 200 NS Inj 1,000 ML @ 100 mls/hr IV 1000 / 1000 .CONT .Q10H NIEVES Rx#:[id number] Zosyn 4.5 GM Premix 4.5 gm In 200 / 200 200 / 200 100 ml @ 200 mls/hr IV.SIG Q6H NIEVES Rx#:[id number] Oral 750 / 750 120 / 120 Other: # Voids 5 3 # Bowel Movements 1 Narrative: GENERAL: NAD SKIN: Warm and dry. HEAD: Atraumatic. Normocephalic. EYES: Pupils equal and round. No scleral icterus. No injection or drainage. ENT: No nasal bleeding or discharge. Mucous membranes pink and moist. NECK: Trachea midline. No JVD. CARDIOVASCULAR: Irregular regular rate and rhythm. RESPIRATORY: No accessory muscle use. Clear to auscultation. Breath sounds equal bilaterally. GASTROINTESTINAL: Abdomen soft, non-tender, nondistended. Hepatic and splenic margins not palpable. inc c/d/i MUSCULOSKELETAL: Extremities without clubbing, cyanosis, or edema. No obvious deformities. NEUROLOGICAL: Awake and alert. No obvious cranial nerve deficits. Motor grossly within normal limits. Five out of 5 muscle strength in the arms and legs. Normal speech. PSYCHIATRIC: Appropriate mood and affect; insight and judgment normal. Results - Labs CBC & Chem 7: 06/10/18 04:37 06/10/18 04:37 Laboratory Results - last 24 hr 06/11/18 06/11/18 06/11/18 11:45 16:18 22:24 POC Glucose 127 H 150 H 166 H Microbiology 06/10/18 06:06 Wound - Abdominal Gram Stain - Final 06/10/18 06:06 Wound - Abdominal Wound Culture - Final Escherichia coli 06/10/18 06:06 Other Fungal Smear - Final No fungal elements seen 06/10/18 06:06 Other Acid Fast Bacilli Smear - Final No acid fast bacilli seen 06/09/18 13:15 Clean Catch Urine Urine Culture - Final 10-50,000 cfu/mL mixed gram positive matt (probable contaminants) - Imaging Impressions Chest X-Ray 06/11/18 00:00 CONCLUSION: Moderate congestive failure with significant progression from 06/09/2018 - Procedures 06/10/18laparoscopic appendectomy with Dr. Coulter Assessment and Plan - Plan 83-year-old female with Acute appendicitis: -Status post appendectomy Management per general surgery Pain management accordingly Currently on clear diet, advance diet as tolerated per surgery Continue on antibiotics with IV Zosyn Atrial fibrillation: Chronic -Continue to hold Xarelto until cleared by surgery to restart -Continue Cardizem CD 300 mg daily -Monitor on telemetry GERD: Chronic -Continue PPI Hyperlipidemia: Chronic -Continue statin\ Acute pulmonary edema Resolved status post Lasix 40 mg IV x1 given last night June 11, 2018 IV fluid has been discontinued DVT prophylaxis: with SCD and early ambulation. PT consult to treat and eval Discharge Planning: Discharge in a.m. June 13, 2018
--- NOTE | 2018-06-12 10:28 | P.PNGS ---
Subjective Interval history: Alert and awake Had episode of CHF last night--- IVF stopped Feeling much better this morning Physical Exam Vital signs: Vital Signs 06/11/18 11:28 06/11/18 12:00 06/11/18 16:00 Temperature 97.6 F 97.6 F Pulse Rate 84 89 Respiratory Rate 18 16 17 Blood Pressure 115/57 L 144/65 H Pulse Oximetry 94 L 93 L 06/11/18 16:12 06/11/18 17:31 06/11/18 20:00 Temperature 98.4 F Pulse Rate 72 88 Respiratory Rate 20 18 Blood Pressure 157/72 H Pulse Oximetry 97 06/11/18 22:20 06/11/18 23:39 06/11/18 23:42 Temperature 98.1 F Pulse Rate 122 H 106 H Respiratory Rate 18 20 Blood Pressure 179/77 H Pulse Oximetry 96 96 06/12/18 00:00 06/12/18 04:00 06/12/18 08:00 Temperature 98.1 F 97.9 F 98.7 F Pulse Rate 88 86 92 H Respiratory Rate 18 18 17 Blood Pressure 154/65 H 116/55 L 121/63 Pulse Oximetry 98 94 L 91 L Intake & Output 06/11/18 06/12/18 06/12/18 18:59 06:59 18:59 Intake Total 1949 / 1949 320 / 320 Balance 1949 / 1949 320 / 320 Weight 66.2 kg Intake: IV 1200 / 1200 200 / 200 NS Inj 1,000 ML @ 100 mls/hr IV 1000 / 1000 .CONT .Q10H NIEVES Rx#:[id number] Zosyn 4.5 GM Premix 4.5 gm In 200 / 200 200 / 200 100 ml @ 200 mls/hr IV.SIG Q6H NIEVES Rx#:[id number] Oral 750 / 750 120 / 120 Other: # Voids 5 3 # Bowel Movements 1 Narrative: Alert and awake Abd: soft; mildly distended; EMELYN with minimal output; mildly tender with palpation Results - Labs 06/10/18 04:37 06/10/18 04:37 Laboratory Results - last 24 hr 06/11/18 06/11/18 06/11/18 11:45 16:18 22:24 POC Glucose 127 H 150 H 166 H - Imaging Imaging: ITS Impressions Abdomen/Pelvis CT 06/09/18 13:20 CONCLUSION: 1. Abnormal tubular structure and small calcification in the right lower quadrant with surrounding inflammatory change. The findings are most characteristic of acute appendicitis with possible rupture. There is no free air. 2. Extensive diverticulosis. 3. Unremarkable gallbladder. Chest X-Ray 06/11/18 00:00 CONCLUSION: Moderate congestive failure with significant progression from 06/09/2018 Assessment and Plan - Assessment (1) Acute appendicitis Code(s): K35.80 - Unspecified acute appendicitis Status: Acute Plan: 83 year old female POD2 lap appy; localized perforation -Slowly advance diet as tolerated although I did suggest small more frequent meals -Continue Cardizem -OOB as long as HR stable -Pain control -High risk for ileus ---go slow with diet---will likely remain in the hospital for 48-72 hours - Attending Attestation patient seen at bedside soft diet go slow emelyn sxn medical mgnt for chf exacerbation d/c planning The exam, history, and the medical decision-making described in the above note were completed with the assistance of the mid-level provider. I reviewed and agree with the findings presented. I attest that I had a [id number] encounter with the patient on the same day, and personally performed and documented my assessment and findings in the medical record. (1) Acute appendicitis Qualifiers: Acute appendicitis type: other Qualified Code(s): K35.890 - Other acute appendicitis without perforation or gangrene; K35.89 - Other acute appendicitis
--- NOTE | 2018-06-12 10:30 | P.DCO ---
- Diagnosis (1) Acute appendicitis Status: Acute - Home Health Nursing Order: Wound care and dressing changes Instructions: Routine KRISHNA care - Case Management Consult Case Management Consult-Home Health: Yes - Certification I have seen patient Shyann Del Toro on 06/12/18. My clinical findings support the need for the requested home health care services because: Patient has SOB I certify that my clinical findings support that this patient is homebound because: Post-op weakness (1) Acute appendicitis Qualifiers: Acute appendicitis type: other Qualified Code(s): K35.890 - Other acute appendicitis without perforation or gangrene; K35.89 - Other acute appendicitis
--- NOTE | 2018-06-12 11:15 | P.DS ---
Date of admission: 06/09/18 15:49 Primary care physician: Negrito Grace MD Brief History from admission: This is a 83-year-old female with a history of A. fib on Xarelto, hyperlipidemia and GERD. She presents to the emergency department because of abdominal pain for 3 days. She describes an intermittent excruciating generalized pain worse on the right side associated with anorexia. Because she was not feeling well she stopped taking her Xarelto since Friday. Denies fever, chills, nausea, UTI symptoms, constipation and diarrhea. Abdominal CT shows changes suggestive of acute appendicitis with probably ruptured. General surgery has requested medical service to admit the patient and start IV Zosyn. All other systems reviewed negative. ITS Impressions DS: Summary Hospital Course: While in hospital, patient was treated for: Acute appendicitis: -Status post appendectomy Management per general surgery Pain management accordingly Post operatively, she was continued on IV antibiotics and discontinue prior to discharge. Her diet was advanced accordingly. Atrial fibrillation: Chronic -Xarelto was held and patient was continued on her Cardizem. She will resume Xarelto -Monitor on telemetry GERD: Chronic -Continue PPI Hyperlipidemia: Chronic -Continue statin\ Acute pulmonary edema Resolved status post Lasix 40 mg IV x1 given the night June 11, 2018 IV fluid has been discontinued DVT prophylaxis: with SCD and early ambulation. - Time Spent with Patient Total time spent providing and/or coordinating discharge services: Greater than 30 minutes - Quality: VTE Deep Vein Thrombosis/Pulmonary Embolism Present on Admission: No Exam Vital signs: Vital Signs 06/11/18 11:28 06/11/18 12:00 06/11/18 16:00 Temperature 97.6 F 97.6 F Pulse Rate 84 89 Respiratory Rate 18 16 17 Blood Pressure 115/57 L 144/65 H Pulse Oximetry 94 L 93 L 06/11/18 16:12 06/11/18 17:31 06/11/18 20:00 Temperature 98.4 F Pulse Rate 72 88 Respiratory Rate 20 18 Blood Pressure 157/72 H Pulse Oximetry 97 06/11/18 22:20 06/11/18 23:39 06/11/18 23:42 Temperature 98.1 F Pulse Rate 122 H 106 H Respiratory Rate 18 20 Blood Pressure 179/77 H Pulse Oximetry 96 96 06/12/18 00:00 06/12/18 04:00 06/12/18 08:00 Temperature 98.1 F 97.9 F 98.7 F Pulse Rate 88 86 92 H Respiratory Rate 18 18 17 Blood Pressure 154/65 H 116/55 L 121/63 Pulse Oximetry 98 94 L 91 L Intake & Output 06/11/18 06/12/18 06/12/18 18:59 06:59 18:59 Intake Total 1949 / 1949 320 / 320 Balance 1949 320 / 320 Weight 66.2 kg Intake: IV 1200 / 1200 200 / 200 NS Inj 1,000 ML @ 100 mls/hr IV 1000 / 1000 .CONT .Q10H NIEVES Rx#:[id number] Zosyn 4.5 GM Premix 4.5 gm In 200 / 200 200 / 200 100 ml @ 200 mls/hr IV.SIG Q6H NIEVES Rx#:[id number] Oral 750 / 750 120 / 120 Other: # Voids 5 3 # Bowel Movements 1 Results Procedures completed during hospitalization: 06/10/18laparoscopic appendectomy with Dr. Coulter Completed studies during hospitalization: Pending at discharge 06/10/18 09:18 Surgical [PTH] Routine Labs on day of discharge: Labs from last 24 hours 06/11/18 06/11/18 06/11/18 22:24 16:18 11:45 POC Glucose 166 H 150 H 127 H - Impressions ITS Impressions Abdomen/Pelvis CT 06/09/18 13:20 CONCLUSION: 1. Abnormal tubular structure and small calcification in the right lower quadrant with surrounding inflammatory change. The findings are most characteristic of acute appendicitis with possible rupture. There is no free air. 2. Extensive diverticulosis. 3. Unremarkable gallbladder. Chest X-Ray 06/11/18 00:00 CONCLUSION: Moderate congestive failure with significant progression from 06/09/2018 Discharge Plan - Discharge Disposition Patient Disposition: Disch W/Home Health Service - Discharge Condition Condition: Good - Physicians Team Primary Care Provider: Negrito Grace Attending Provider: Lukasz Caal Other Providers: Abdi Coulter MD ; Kurt Hicks
--- NOTE | 2018-06-12 12:18 | XR ---
EXAM DATE: 06/12/2018 11:59 AM EST AGE/SEX: 83 years / Female INDICATIONS: Shortness of breath. Follow-up congestive heart failure. CLINICAL DATA: This is the patient's subsequent encounter. Patient reports that signs and symptoms h ave been present for 1 day and indicates a pain score of 0/10. MEDICAL/SURGICAL HISTORY: . Chronic obstructive pulmonary disease. Congestive heart failure. None. COMPARISON: [facility] [place], CHEST 1V SINGLE AP, 06/11/2018. . FINDINGS: A single AP erect portable view of the chest was obtained and demonstrates a mild interval improvemen t in the bilateral pulmonary opacities. There is no focal consolidation or effusion. The heart size r emains mildly prominent. Atherosclerotic changes are present in the aorta. There are mild tracheal ca lcifications. The bony thorax remains intact. CONCLUSION: Mild improvement in pulmonary edema. Electronically signed by: Lawrence Adams MD Board Certified Radiologist 06/12/2018 12:17 PM BURTON Singletary
[2018-06-13] MEDS: Piperacil/Tazo 4.5 GM Premix 4.5 GM/100 ML BAG IV.SIG SCH ×4 (03:51→21:38)
--- NOTE | 2018-06-13 08:05 | P.PNIM ---
Subjective Interval history: Patient seen and examined this morning. Afebrile vital signs stable. Sitting up in bed in no apparent distress. Reports having some mild discomfort at the incision sites but overall doing well. Looking forward to going home today. Physical Exam Vital signs: Vital Signs 06/12/18 12:00 06/12/18 16:00 06/12/18 20:00 Temperature 97.6 F 97.6 F 98.5 F Pulse Rate 74 77 80 Respiratory Rate 18 17 17 Blood Pressure 96/54 L 152/67 H 163/70 H Pulse Oximetry 96 90 L 95 06/13/18 00:00 06/13/18 04:00 Temperature 98.4 F 98.4 F Pulse Rate 109 H 73 Respiratory Rate 18 17 Blood Pressure 137/76 149/69 H Pulse Oximetry 94 L 95 Intake & Output 06/12/18 06/13/18 06/13/18 18:59 06:59 18:59 Intake Total 100 / 100 680 / 680 Output Total 0 / 0 0 / 0 Balance 100 / 100 680 / 680 Weight 66 kg Intake: IV 100 / 100 200 / 200 Zosyn 4.5 GM Premix 4.5 gm In 100 / 100 200 / 200 100 ml @ 200 mls/hr IV.SIG Q6H NIEVES Rx#:[id number] Oral 480 / 480 Output: Wound Drainage 0 / 0 0 / 0 # 1 Abdomen 0 / 0 0 / 0 Other: # Voids 2 Narrative: GEN: Well-developed, well-nourished patient. No acute distress. CV: Regular rate and rhythm without obvious murmurs LUNGS: Clear to auscultation bilaterally. Normal respiratory effort. No wheezes , rales, rhonchi. GI: Soft, nontender, nondistended. No palpable masses. Bowel sounds WNL. Incision sites are clean dry and intact EXT: No edema. NEURO/PSYCH: Afocal. Awake, alert, and oriented x3. Appropriate insight and judgment. Results - Labs CBC & Chem 7: 06/10/18 04:37 06/10/18 04:37 Laboratory Results - last 24 hr 06/12/18 06/12/18 11:38 16:47 POC Glucose 109 101 Microbiology 06/10/18 06:06 Wound - Abdominal Gram Stain - Final 06/10/18 06:06 Wound - Abdominal Wound Culture - Final Escherichia coli - Imaging Impressions Chest X-Ray 06/12/18 00:00 CONCLUSION: Mild improvement in pulmonary edema. - Procedures 06/10/18laparoscopic appendectomy with Dr. Coulter Assessment and Plan - Assessment (1) Acute appendicitis Code(s): K35.80 - Unspecified acute appendicitis Status: Acute - Plan 83-year-old female with Acute appendicitis: -Status post appendectomy Management per general surgery Pain management accordingly Tolerating regular diet Continue on antibiotics with IV Zosyn until discharge Atrial fibrillation: Chronic -Continue to hold Xarelto until cleared by surgery to restart -Continue Cardizem CD 300 mg daily -Monitor on telemetry GERD: Chronic -Continue PPI Hyperlipidemia: Chronic -Continue statin\ Acute pulmonary edema Resolved status post Lasix 40 mg IV x1 given last night June 11, 2018 IV fluid has been discontinued DVT prophylaxis: with SCD and early ambulation. PT consult to treat and eval Code Status: Full code Discharge Planning: Discharge home this morning (1) Acute appendicitis Qualifiers: Acute appendicitis type: other Qualified Code(s): K35.890 - Other acute appendicitis without perforation or gangrene; K35.89 - Other acute appendicitis
[2018-06-13] MEDS: dilTIAZem CD 300 MG Capsule PO SCH (08:15)
--- NOTE | 2018-06-13 15:46 | P.PNGS ---
Subjective Patient reports: feels better, still having pain, other (Low O2 on oxygen) Interval history: DAILY PROGRESS NOTE FOR SURGICAL ATTENDING, DR. BLAS CHAPMAN Patient up in bed Having problems with low oxygenation Hopeful to go home Friday or Friday Physical Exam Vital signs: Vital Signs 06/12/18 16:00 06/12/18 20:00 06/13/18 00:00 Temperature 97.6 F 98.5 F 98.4 F Pulse Rate 77 80 109 H Respiratory Rate 17 17 18 Blood Pressure 152/67 H 163/70 H 137/76 Pulse Oximetry 90 L 95 94 L 06/13/18 04:00 06/13/18 08:00 06/13/18 08:13 Temperature 98.4 F 98.0 F Pulse Rate 73 62 Respiratory Rate 17 17 18 Blood Pressure 149/69 H 110/56 L Pulse Oximetry 95 92 L 06/13/18 09:25 06/13/18 12:00 Temperature 97.6 F Pulse Rate 90 Respiratory Rate 18 Blood Pressure 113/71 Pulse Oximetry 94 L 92 L Intake & Output 06/12/18 06/13/18 06/13/18 18:59 06:59 18:59 Intake Total 100 / 100 680 / 680 200 / 200 Output Total 0 / 0 0 / 0 Balance 100 / 100 680 / 680 200 / 200 Weight 66 kg Intake: IV 100 / 100 200 / 200 200 / 200 Zosyn 4.5 GM Premix 4.5 gm In 100 / 100 200 / 200 200 / 200 100 ml @ 200 mls/hr IV.SIG Q6H NIEVES Rx#:[id number] Oral 480 / 480 Output: Wound Drainage 0 / 0 0 / 0 # 1 Abdomen 0 / 0 0 / 0 Other: # Voids 2 Narrative: KRISHNA in place No apparent distress On oxygen Good respiratory effort Results - Labs 06/10/18 04:37 06/10/18 04:37 Laboratory Results - last 24 hr 06/12/18 16:47 POC Glucose 101 - Imaging Imaging: ITS Impressions Abdomen/Pelvis CT 06/09/18 13:20 CONCLUSION: 1. Abnormal tubular structure and small calcification in the right lower quadrant with surrounding inflammatory change. The findings are most characteristic of acute appendicitis with possible rupture. There is no free air. 2. Extensive diverticulosis. 3. Unremarkable gallbladder. Chest X-Ray 06/12/18 00:00 CONCLUSION: Mild improvement in pulmonary edema. Assessment and Plan - Assessment (1) Acute appendicitis Code(s): K35.80 - Unspecified acute appendicitis Status: Acute (2) Pulmonary edema Code(s): J81.1 - Chronic pulmonary edema Status: Acute - Plan 83 year old female POD lap appy; localized perforation Tolerating regular diet but having problems with oxygenation secondary to pulmonary edema . Home health ranging O2 and drain care. - - Attending Attestation NOTE FOR SURGICAL ATTENDING, DR. BLAS CHAPMAN I attest that I had a [id number] encounter with the patient on the same day, and personally performed and documented my assessment and findings in the medical record. The following services were provided during this hospital visit: Chart data review, vital sign assessments/reviewing monitor data Review of consultations notes if present. Medication orders/review and/or management Ordering and/or reviewing lab tests Ordering and/or interpreting/reviewing x-rays and/or diagnostic studies Care of the patient and discussion of the patient with the care team Documentation time To help prompt me to consider important information that might be impacting today's encounter and assessment, Information from prior notes written by myself or my colleagues may have been "brought forward/copy and pasted" into today's note. (1) Acute appendicitis Qualifiers: Acute appendicitis type: other Qualified Code(s): K35.890 - Other acute appendicitis without perforation or gangrene; K35.89 - Other acute appendicitis
[2018-06-14] MEDS: Piperacil/Tazo 4.5 GM Premix 4.5 GM/100 ML BAG IV.SIG SCH ×4 (03:07→21:18)
[2018-06-14] MEDS: dilTIAZem CD 300 MG Capsule PO SCH (08:14)
--- NOTE | 2018-06-14 15:54 | P.PNIM ---
Subjective Interval history: 83-year-old female who presented with abdominal pain and was found to have appendicitis. She underwent surgical removal and has been recovering well. Small setback with episodic A. fib RVR which is now resolved. Physical Exam Vital signs: Last Vital Signs Temp 98.6 F 06/14/18 12:00 Pulse 74 06/14/18 12:12 Resp 22 06/14/18 12:12 BP 162/67 H 06/14/18 12:00 Pulse Ox 95 06/14/18 12:00 Intake & Output 06/12/18 06/13/18 06/14/18 06/15/18 06:59 06:59 06:59 06:59 Intake Total 2270 / 2270 780 / 780 740 / 740 100 / 100 Output Total 0 / 0 0 / 0 Balance 2270 / 2270 780 / 780 740 / 740 100 / 100 Weight 66.2 kg 66 kg 67.5 kg Narrative: GENERAL: AAOx3, no acute distress SKIN: Warm and dry. No rashes HEAD: Atruamtic, normocephalic. EYES: No scleral icterus. No injection or drainage. ENT: Moist mucous membranes, patent nares, no erythema of oropharynx. NECK: Supple, trachea midline. No JVD or lymphadenopathy. Normal thyroid. CARDIOVASCULAR: Irregularly irregular, rate controlled A. fib. No murmurs, gallops, or rubs. RESPIRATORY: Breath sounds clear equal bilaterally. No crackles or wheezes. No accessory muscle use. GASTROINTESTINAL: Abdomen soft, mild postop tenderness, nondistended, normal active bowel sounds MUSCULOSKELETAL: No cyanosis, or edema. NEURO: CN II-XII grossly intact, no focal deficits, no slurring of speech Results Labs CBC & Chem 7: 06/10/18 04:37 06/10/18 04:37 Procedures Procedures: 06/10/18laparoscopic appendectomy with Dr. Coulter Assessment and Plan (1) Acute appendicitis: Code(s): K35.80 - Unspecified acute appendicitis Status: Acute (2) Pulmonary edema: Code(s): J81.1 - Chronic pulmonary edema Status: Acute Plan Acute appendicitis: S/p appendectomy 06/10/2018 Pain well managed, tolerating regular diet Continuing IV antibiotics with Zosyn until discharge Patient will be appropriate for discharge when cleared by surgery Appreciate general surgery Atrial fibrillation Continue Cardizem CD 300 mg daily Following on telemetry Resume Xarelto tomorrow with morning meds s/p Acute pulmonary edema Resolved status post Lasix 40 mg IV x1 given last night June 11, 2018 IV fluid has been discontinued DVT prophylaxis Xarelto, ambulation, SCDs Progress Note: Quality VTE Deep Vein Thrombosis/Pulmonary Embolism Present on Admission: No _ (1) Acute appendicitis Qualifiers: Acute appendicitis type: other Appendicitis abscess presence: Appendicitis gangrene presence: Appendicitis perforation presence: Qualified Code(s): K35.890 - Other acute appendicitis without perforation or gangrene; K35.89 - Other acute appendicitis (2) Pulmonary edema Qualifiers: Chronicity:
--- NOTE | 2018-06-14 18:51 | P.PN ---
Subjective Interval history: On room air today; appears comfortable. Physical Exam Vital signs: Vital Signs 06/13/18 20:00 06/13/18 22:18 06/14/18 00:00 Temperature 98.5 F 98.4 F Pulse Rate 76 60 68 Respiratory Rate 16 18 17 Blood Pressure 126/59 L 134/68 Pulse Oximetry 96 98 95 06/14/18 04:00 06/14/18 07:40 06/14/18 08:00 Temperature 98.5 F 98.0 F Pulse Rate 64 74 Respiratory Rate 16 16 Blood Pressure 123/58 L 142/61 H Pulse Oximetry 93 L 94 L 95 06/14/18 12:00 06/14/18 12:12 06/14/18 16:00 Temperature 98.6 F 98.8 F Pulse Rate 80 74 84 Respiratory Rate 17 22 16 Blood Pressure 162/67 H 136/63 Pulse Oximetry 95 92 L Intake & Output 06/13/18 06/14/18 06/14/18 18:59 06:59 18:59 Intake Total 300 / 300 440 / 440 200 / 200 Output Total 0 / 0 0 / 0 Balance 300 / 300 440 / 440 200 / 200 Weight 67.5 kg Intake: IV 300 / 300 200 / 200 200 / 200 Zosyn 4.5 GM Premix 4.5 gm In 300 / 300 200 / 200 200 / 200 100 ml @ 200 mls/hr IV.SIG Q6H NIEVES Rx#:[id number] Oral 240 / 240 Output: Wound Drainage 0 / 0 0 / 0 # 1 Abdomen 0 / 0 0 / 0 Other: # Voids 2 - Constitutional no acute distress - Routine HEENT Exam Head: Present: normocephalic, atraumatic - Routine Respiratory Exam Present: CTA bilaterally - Routine Cardiovascular Exam Present: RRR - Routine Abdominal Exam Present: soft, normoactive bowel sounds Comments: KRISHNA output minimal and serous. Results - Labs CBC & Chem 7: 06/10/18 04:37 06/10/18 04:37 - Procedures 06/10/18laparoscopic appendectomy with Dr. Coulter Assessment and Plan - Assessment (1) Acute appendicitis Code(s): K35.80 - Unspecified acute appendicitis Status: Acute Plan: Likely discharge home tomorrow if her pulmonary status remains improved. Return to see Dr. Hernandez in the office this next week. (2) Pulmonary edema Code(s): J81.1 - Chronic pulmonary edema Status: Acute - Plan Discussed Condition With: Patient - Attending Attestation I attest that I had a [id number] encounter with the patient on the same day, and personally performed and documented my assessment and findings in the medical record. The following services were provided during this hospital visit: Chart data review, vital sign assessments/reviewing monitor data Review of consultation notes if present Medication orders/review and/or management Ordering and/or reviewing lab tests Ordering and/or interpreting/reviewing x-rays and/or diagnostic studies Care of the patient and discussion of the patient with the care team Documentation time To help prompt me to consider important information that might be impacting today's encounter and assessment, Information from prior notes written by myself or my colleagues may have been "brought forward/copy and pasted" into today's note. (1) Acute appendicitis Qualifiers: Acute appendicitis type: other Qualified Code(s): K35.890 - Other acute appendicitis without perforation or gangrene; K35.89 - Other acute appendicitis
[2018-06-14] MEDS: Docusate Sodium 100 MG Capsule PO SCH (21:18)
[2018-06-15] MEDS: Piperacil/Tazo 4.5 GM Premix 4.5 GM/100 ML BAG IV.SIG SCH ×2 (05:25→09:20)
[2018-06-15] MEDS ORDERED: Rivaroxaban 20 MG Tablet PO SCH (09:00)
[2018-06-15] MEDS: dilTIAZem CD 300 MG Capsule PO SCH (09:21)
[2018-06-15] MEDS: Docusate Sodium 100 MG Capsule PO SCH (09:23)
--- NOTE | 2018-06-15 09:47 | P.DCO ---
- Diagnosis (1) Acute appendicitis Status: Acute - Home Health Nursing Order: Wound care and dressing changes, Nursing assessment with vital signs Instructions: Routine lap care - Case Management Consult Case Management Consult-Home Health: Yes - Certification I have seen patient Shyann Del Toro on 06/15/18. My clinical findings support the need for the requested home health care services because: Patient has SOB I certify that my clinical findings support that this patient is homebound because: Post-op weakness (1) Acute appendicitis Qualifiers: Acute appendicitis type: other Qualified Code(s): K35.890 - Other acute appendicitis without perforation or gangrene; K35.89 - Other acute appendicitis
--- NOTE | 2018-06-15 09:54 | P.PNGS ---
Subjective Interval history: Ambulating in the room RN Steffi at bedside Patient feels ready to go home Physical Exam Vital signs: Vital Signs 06/14/18 12:00 06/14/18 12:12 06/14/18 16:00 Temperature 98.6 F 98.8 F Pulse Rate 80 74 84 Respiratory Rate 17 22 16 Blood Pressure 162/67 H 136/63 Pulse Oximetry 95 92 L 06/14/18 20:00 06/14/18 20:10 06/14/18 20:39 Temperature 99.1 F Pulse Rate 70 71 Respiratory Rate 18 18 Blood Pressure 145/88 H Pulse Oximetry 95 95 95 06/15/18 00:00 06/15/18 04:00 Temperature 98.3 F 98 F Pulse Rate 75 76 Respiratory Rate 16 14 Blood Pressure 157/66 H 127/73 Pulse Oximetry 95 91 L Intake & Output 06/14/18 06/15/18 06/15/18 18:59 06:59 18:59 Intake Total 200 / 200 440 / 440 Output Total 0 / 0 Balance 200 / 200 440 / 440 Weight 65.9 kg Intake: IV 200 / 200 200 / 200 Zosyn 4.5 GM Premix 4.5 gm In 200 / 200 200 / 200 100 ml @ 200 mls/hr IV.SIG Q6H NIEVES Rx#:[id number] Oral 240 / 240 Output: Wound Drainage 0 / 0 # 1 Abdomen 0 / 0 Other: # Voids 2 Narrative: Alert and awake Abd: soft; non tender; KRISHNA with no drainage Results - Labs 06/10/18 04:37 06/10/18 04:37 - Imaging Imaging: ITS Impressions Abdomen/Pelvis CT 06/09/18 13:20 CONCLUSION: 1. Abnormal tubular structure and small calcification in the right lower quadrant with surrounding inflammatory change. The findings are most characteristic of acute appendicitis with possible rupture. There is no free air. 2. Extensive diverticulosis. 3. Unremarkable gallbladder. Chest X-Ray 06/12/18 00:00 CONCLUSION: Mild improvement in pulmonary edema. Assessment and Plan - Assessment (1) Acute appendicitis Code(s): K35.80 - Unspecified acute appendicitis Status: Acute Plan: 83 year old female s/p lap appy; localized perforation -Tolerating regular diet -Continue Augmentin at home -DC KRISHNA prior to DC -GS clear for DC -Rx for [place] and Augmentin on chart -Follow up with Dr. Coulter on Jul 06 at 1:30PM (1) Acute appendicitis Qualifiers: Acute appendicitis type: other Qualified Code(s): K35.890 - Other acute appendicitis without perforation or gangrene; K35.89 - Other acute appendicitis
--- NOTE | 2018-06-15 11:04 | P.DCO ---
- Diagnosis (1) Acute appendicitis Status: Acute - Physical Therapy Order: Evaluate and treat, Improve ambulation, Strength and gait training Instructions: No restrictions - Home Health Nursing Order: Wound care and dressing changes - Home Health Aide Order: To assist in: Bathing and personal care, sports physician and meal prep - Case Management Consult Case Management Consult-Home Health: Yes - Certification I have seen patient Shyann Del Toro on 06/15/18. My clinical findings support the need for the requested home health care services because: Limited mobility due to disease progression I certify that my clinical findings support that this patient is homebound because: Post-op weakness (1) Acute appendicitis Qualifiers: Acute appendicitis type: other Qualified Code(s): K35.890 - Other acute appendicitis without perforation or gangrene; K35.89 - Other acute appendicitis
--- NOTE | 2018-06-15 11:29 | P.PNIM ---
Subjective Interval history: Patient has no complaints today, she is ambulating with minimal effort. Breathing easier this morning. She still has not had a significant bowel movement, she blames the fact that she did not eat very long prior to surgery. She feels ready to go home with home health care, pending general surgery clearance. Physical Exam Vital signs: Last Vital Signs Temp 98.1 F 06/15/18 08:00 Pulse 92 H 06/15/18 08:00 Resp 18 06/15/18 08:00 BP 99/66 L 06/15/18 08:00 Pulse Ox 96 06/15/18 10:21 Intake & Output 06/13/18 06/14/18 06/15/18 06/16/18 06:59 06:59 06:59 06:59 Intake Total 780 / 780 740 / 740 640 / 640 100 / 100 Output Total 0 / 0 0 / 0 0 / 0 Balance 780 / 780 740 / 740 640 / 640 100 / 100 Weight 66 kg 67.5 kg 65.9 kg Narrative: GENERAL: AAOx3, no acute distress SKIN: Warm and dry. No rashes HEAD: Atruamtic, normocephalic. EYES: No scleral icterus. No injection or drainage. ENT: Moist mucous membranes, patent nares, no erythema of oropharynx. NECK: Supple, trachea midline. No JVD or lymphadenopathy. Normal thyroid. CARDIOVASCULAR: Irregularly irregular, rate controlled. No murmurs, gallops, or rubs. RESPIRATORY: Breath sounds clear equal bilaterally. No crackles or wheezes. No accessory muscle use. GASTROINTESTINAL: Abdomen soft, non-tender, nondistended, normal active bowel sounds MUSCULOSKELETAL: No cyanosis, or edema. NEURO: CN II-XII grossly intact, no focal deficits, no slurring of speech Results Labs CBC & Chem 7: 06/10/18 04:37 06/10/18 04:37 Procedures Procedures: 06/10/18laparoscopic appendectomy with Dr. Coulter Assessment and Plan (1) Acute appendicitis: Code(s): K35.80 - Unspecified acute appendicitis Status: Acute . Plan Acute appendicitis: S/p appendectomy 06/10/2018 Pain well managed, tolerating regular diet Cleared by general surgery for discharge, p.o. Augmentin written by surgical team Appreciate general surgery Atrial fibrillation Continue Cardizem CD 300 mg daily Continue Xarelto following discharge s/p Acute pulmonary edema Resolved status post Lasix 40 mg IV x1 given last night June 11, 2018 IV fluid has been discontinued DVT prophylaxis Xarelto, ambulation, SCDs Disposition Patient has been cleared by general surgery for discharge home on Augmentin, follow-up arranged Discharge order was placed [address] Caal medications reviewed See nothing to add to the medication list at this time, agree with discharge plan Clear for discharge from my standpoint Progress Note: Quality VTE Deep Vein Thrombosis/Pulmonary Embolism Present on Admission: No _ (1) Acute appendicitis Qualifiers: Acute appendicitis type: other Appendicitis abscess presence: Appendicitis gangrene presence: Appendicitis perforation presence: Qualified Code(s): K35.890 - Other acute appendicitis without perforation or gangrene; K35.89 - Other acute appendicitis
--- NOTE | 2018-06-15 11:31 | P.DCO ---
Diagnosis (1) Acute appendicitis: Status: Acute Physical Therapy Order: Evaluate and treat Home Health Nursing Order: Medical education, Signs/symptoms of disease process, Wound care and dressing changes and Nursing assessment with vital signs Case Management Consult Case Management Consult-Home Health: Yes I have seen patient Shyann Del Toro on 06/15/18. My clinical findings support the need for the requested home health care services because: Limited mobility due to disease progression, Deconditioned with increased weakness and Limited ability to care for self I certify that my clinical findings support that this patient is homebound because: Post-op weakness, Hx COPD - exertion dyspnea/weakness, Unsteady gait/balance and Unable to use public transportation _ (1) Acute appendicitis Qualifiers: Acute appendicitis type: other Appendicitis abscess presence: Appendicitis gangrene presence: Appendicitis perforation presence: Qualified Code(s): K35.890 - Other acute appendicitis without perforation or gangrene; K35.89 - Other acute appendicitis
== END 2018-06-15 13:49 | disposition home health service (06) ==
LOC: PHEFT 12:46 → PHEDA 15:49 → NEPFCDU 17:32 → N07 06-10 07:50
PROVIDERS: ADMIT Family Medicine; ATTEND Family Medicine
PROC: LAPAPPY (ICD-10-PCS; 2018-06-10 05:36)
DX: K57.90 Diverticulosis of intestine, part unspecified, without perforation or abscess without bleeding; E78.5 Hyperlipidemia, unspecified; K35.32 Acute appendicitis with perforation, localized peritonitis, and gangrene, without abscess; B96.20 Unspecified Escherichia coli [E. coli] as the cause of diseases classified elsewhere; K21.9 Gastro-esophageal reflux disease without esophagitis; Z79.01 Long term (current) use of anticoagulants; I48.2 Chronic atrial fibrillation; J81.0 Acute pulmonary edema; Z79.899 Other long term (current) drug therapy